=== PATIENT | female | born 1955 | race Caucasian/White ===

== ENCOUNTER 2017-09-13 07:49 | Day surgery (SDC) | payer OTHER ==
[2017-09-13] MEDS ORDERED: PROPOFOL 40 ML (09:06)
== END 2017-09-13 11:11 | disposition home or self-care (01) ==
LOC: GIL 07:49
DX: Z12.11 Encounter for screening for malignant neoplasm of colon (principal); K29.60 Other gastritis without bleeding; K44.9 Diaphragmatic hernia without obstruction or gangrene; K64.8 Other hemorrhoids; E11.9 Type 2 diabetes mellitus without complications
CPT/HCPCS: 43239; 82962; 87081; 88305